=== PATIENT | female | born 1960 | race African-American/Black ===

== ENCOUNTER 2017-11-21 19:55 | Emergency (ER) | payer OTHER ==
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
[2017-11-21 20:54] VITALS: BP 153/97; TEMP 98.2
[2017-11-21 21:28] LABS: EOS % 1.4 % (0-4.5); HEMATOCRIT 39.6 % (32.4-45.2); HEMOGLOBIN 12.9 GM/dL (10.7-15.3); LYMPH % 52.8 % (8-40); MCH 26.5 pg (25.7-33.7); MCHC 32.5 g/dl (32.0-36.0); MEAN CELL VOLUME 81.7 fl (80-96); MEAN PLT VOLUME 9.3 fl (7.5-11.1); NEUT % 37.8 % (42.8-82.8); PLATELET COUNT 200 K/MM3 (134-434); RBC 4.84 M/mm3 (3.60-5.2); RDW 13.9 % (11.6-15.6); WHITE BLOOD COUNT 5.8 K/mm3 (4.0-10.0)
[2017-11-21 21:55] LABS: ALBUMIN 4.3 g/dl (3.4-5.0); ANION GAP 5 (8-16); BILIRUBIN,TOTAL 0.3 mg/dL (0.2-1.0); BLOOD UREA NITROGEN 12 mg/dL (7-18); CALCIUM 8.5 mg/dL (8.5-10.1); CHLORIDE 105 mmol/L (98-107); CO2 30 mmol/L (21-32); CREATININE 0.7 mg/dL (0.55-1.02); GLUCOSE,RANDOM 109 mg/dL (74-106); POTASSIUM 3.6 mmol/L (3.5-5.1); SGOT/AST 18 U/L (15-37); SGPT/ALT 37 U/L (12-78); SODIUM 140 mmol/L (136-145); TOT PROT 7.8 g/dl (6.4-8.2)
[2017-11-21 21:56] LABS: ALK PHOS 121 U/L (45-117)
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
[2017-11-23 06:07] LABS: HBsAG SCREEN Negative (Negative); HEPATITIS B CORE ANTIBODY Negative (Negative)
== END 2017-11-21 22:53 | disposition home or self-care (01) ==
LOC: JERFT 19:55
DX: Z77.21 Contact with and (suspected) exposure to potentially hazardous body fluids (principal); X58.XXXA Exposure to other specified factors, initial encounter; Y93.89 Activity, other specified; Y92.239 Unspecified place in hospital as the place of occurrence of the external cause; Y99.0 Civilian activity done for income or pay; I10 Essential (primary) hypertension
CPT/HCPCS: 36415; 80053; 85025; 86704; 86803; 87340; 87389; 99281-25

== ENCOUNTER 2018-07-05 17:26 | Emergency (ER) | payer OTHER ==
[2018-07-05 17:44] VITALS: TEMP 97.9; BMI 28.3
--- NOTE | 2018-07-05 18:15 | PDOC ---
History of Present Illness - General Chief Complaint: Lightheaded Stated Complaint: DIZZINESS Time Seen by Provider: 07/05/18 17:48 History Source: Patient Exam Limitations: No Limitations - History of Present Illness Initial Comments: 07/05/18 18:10 58 yo female pmh of hypertension and osteoarthritis presents to the ED after having an episode of sudden onset dizziness while opening a door quickly at work at 4 20 pm today. Patient denies currently having these s/s but admits to a mild REYNA. Denies ever having these symptoms in the past, LOC, falling, CP or palpitations, N/V, changes in vision, numbness or weakness on one side of her body or incontinence. Past History - Past Medical History Allergies/Adverse Reactions: Allergies Allergy/AdvReac Type Severity Reaction Status Date / Time No Known Allergies Allergy Verified 07/05/18 17:44 Home Medications: Ambulatory Orders Hydrochlorothiazide [Hctz -] 25 mg PO DAILY 04/24/14 Amlodipine Besylate [Norvasc -] 5 mg PO DAILY 11/21/17 COPD: No HTN: Yes - Suicide/Smoking/Psychosocial Hx Smoking History: Never smoked Have you smoked in the past 12 months: No Information on smoking cessation initiated: No Hx Alcohol Use: No Drug/Substance Use Hx: No Substance Use Type: None Review of Systems - Review of Systems Constitutional: No: Chills, Fever HEENTM: No: Blurred Vision, Double Vision Respiratory: No: Shortness of Breath Cardiac (ROS): No: Chest Pain, Irregular Heart Rate, Lightheadedness, Palpitations ABD/GI: No: Nausea, Vomiting Neurological: Yes: Headache (mild). No: Numbness, Paresthesia, Weakness, Ataxia , Dizziness *Physical Exam - Vital Signs Last Vital Signs Temp Pulse Resp BP Pulse Ox 97.9 F 76 17 156/86 100 07/05/18 17:41 07/05/18 17:41 07/05/18 17:41 07/05/18 17:41 07/05/18 17:41 - Physical Exam General Appearance: Yes: Nourished, Appropriately Dressed. No: Apparent Distress HEENT: positive: EOMI, [place]A Respiratory/Chest: positive: Lungs Clear, Normal Breath Sounds. negative: Crackles, Wheezing Cardiovascular: positive: Regular Rhythm, Regular Rate, S1, S2. negative: Edema , JVD, Murmur Vascular Pulses: Dorsalis-Pedis (R): 4+, Doralis-Pedis (L): 4+ Gastrointestinal/Abdominal: positive: Normal Bowel Sounds. 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 negative: Facial Droop, Numbness, Sensory Deficit, Finger to Nose (normal) Heart Score/ECG Review - ECG Intrepretation Rhythm: Regular Rhythm - [place]: Normal - ECG Impressions Normal ECG: Yes Medical Decision Making - Medical Decision Making 07/05/18 18:53 58 yo female pmh of hypertension presents to ED with mild headache and dizziness. Headache present but dizziness resolved. Neuro exam negative. Normal EKG, no arrhythmia CBC, CMP ordered for anemia, electrolytes Reglan and fluids ordered. DC home if labs normal *DC/Admit/Observation/Transfer - Referrals Referrals: Mike Jimenez MD [Primary Care Provider] - - Patient Instructions - Post Discharge Activity
--- NOTE | 2018-07-05 18:34 | PDOC ---
Attending Attestation - Resident Resident Name: Preston De Santiago - ED Attending Attestation I have performed the following: I have examined & evaluated the patient, The case was reviewed & discussed with the resident, I agree w/resident's findings & plan, Exceptions are as noted - HPI HPI: 07/05/18 18:30 58y F hx of htn, hl, presents with feeling lightheaded for about 1 hr, states she turned her head really fast and felt lightheaded and like her head was spinning raound was most severe immediately but then gradually improved. It has since ressolved - no associated cp, palpitatoins, n/v, viso nchanges, numbness/ tingling/weakness, neck pain, back pain, dairrhea, melena, bpr. pt currently presenting mild posterior headache. exam unremarkble heart: rrr, no mrg pulm: cta b/l abd soft nontender neuro: moving all 4 extremities spnotaneously and symmetrically Possible vagal episode versus peripheral vertigo Will check basic blood work to rule out anemia, metabolic derangements, EKG to screen for arrhythmia If workup negative anticipate discharge with PMD follow-up 07/05/18 20:38 Patient's blood work resulted and they are unremarkable patient is currently asymptomatic Will discharge strict return precautions - Physicial Exam PE: 07/07/18 19:51 se eaobve - Medical Decision Making 07/07/18 19:51 see above Heart Score/ECG Review - ECG Impressions Comment:: 07/05/18 18:34 Twelve-lead EKG was performed and reviewed by me. There is normal sinus rhythm with a normal rate. Rate of [address] changes suggestive of acute ischemia
[2018-07-05] MEDS ORDERED: METOCLOPRAMIDE HCL INJECTION 10 MG/2 ML VIAL IVPUSH ONE (18:41)
[2018-07-05] MEDS ORDERED: SODIUM CHLORIDE 1,000 ML IV STA (18:41)
[2018-07-05] MEDS ORDERED: METOCLOPRAMIDE HCL INJECTION 10 MG/2 ML VIAL ONE (18:52)
--- NOTE | 2018-07-05 19:21 | PDOC ---
*Physical Exam - Vital Signs Last Vital Signs Temp Pulse Resp BP Pulse Ox 97.9 F 76 17 156/86 100 07/05/18 17:41 07/05/18 17:41 07/05/18 17:41 07/05/18 17:41 07/05/18 17:41 - Physical Exam Comments: 07/05/18 19:28 GENERAL: Awake, alert, and fully oriented, in no acute distress HEAD: No signs of trauma, normocephalic, atraumatic EYES: EOMI, sclera anicteric, conjunctiva clear ENT:oropharynx clear without exudates. Moist mucosa NECK: Normal ROM, supple LUNGS: No distress, speaks full sentences, clear to auscultation bilaterally HEART: Regular rate and rhythm, normal S1 and S2, no murmurs, rubs or gallops, peripheral pulses normal and equal bilaterally. ABDOMEN: Soft, nontender, normoactive bowel sounds. No guarding, no rebound. No masses EXTREMITIES : Normal inspection, Normal range of motion, no edema. No clubbing or cyanosis. NEUROLOGICAL: Normal speech, normal gait, no focal sensorimotor deficits SKIN: Warm, Dry, normal turgor, no rashes or lesions noted ED Treatment Course - LABORATORY CBC & Chemistry Diagram: 07/05/18 18:47 07/05/18 19:31 - Medications Given in the ED: ED Medications Discontinued Medications Generic Name Dose Route Start Last Admin Trade Name Freq PRN Reason Stop Dose Admin Metoclopramide HCl 10 mg 07/05/18 18:41 07/05/18 19:02 Reglan Injection - IVPUSH 07/05/18 18:42 10 mg ONCE ONE Administration Medical Decision Making - Medical Decision Making 58 yo female pmh of hypertension and osteoarthritis presents to the ED after having an episode of sudden onset dizziness while opening a door quickly at work at 4 20 pm today. Patient denies currently having these s/s but admits to a mild REYNA. Denies ever having these symptoms in the past, LOC, falling, CP or palpitations, N/V, changes in vision, numbness or weakness on one side of her body or incontinence. DDX including but not limited to: dehydration vs anemia vs arrythmia W/U: - cbc, cmp - ekg TX: - 1L NS ED Course: 07/05/18 19:21 Pt signed out by Dr. De Santiago 07/05/18 19:30 Pt assessed. stable. feels improved 07/05/18 19:55 Labwork: unremarkable 07/05/18 20:41 Patient stable for discharge. Given follow up instructions and strict return precautions. Patient expressed understanding and agreed to plan. *DC/Admit/Observation/Transfer Diagnosis at time of Disposition: Dizziness - Discharge Dispostion Disposition: HOME Condition at time of disposition: Stable Decision to Admit order: No - Referrals Referrals: Mike Jimenez MD [Primary Care Provider] - - Patient Instructions Printed Discharge Instructions: DI for Dehydration -- Adult, DI for Dizziness- Nonvertigo Additional Instructions: You were seen in the ED for complaints of dizziness In the ED you were evaluated with labwork. Your results were unremarkable and you showed improvement of symptoms with fluids. There does not appear to be an acute need for immediate hospitalization. You are advised to follow up with your primary care physician within 1 week. Return to the ED immediately if you experience recurrent dizziness, headaches, loss of consciousness, nausea, vomiting, fever or changes in vision or hearing. - Post Discharge Activity
[2018-07-05 19:40] LABS: BASO % 1.6 % (0-2.0); EOS % 1.5 % (0-4.5); HEMATOCRIT 39.4 % (32.4-45.2); HEMOGLOBIN 12.7 GM/dL (10.7-15.3); LYMPH % 51.9 % (8-40); MCH 26.4 pg (25.7-33.7); MCHC 32.2 g/dl (32.0-36.0); MEAN CELL VOLUME 81.9 fl (80-96); MEAN PLT VOLUME 9.5 fl (7.5-11.1); MONO % 8.7 % (3.8-10.2); NEUT % 36.3 % (42.8-82.8); PLATELET COUNT 198 K/MM3 (134-434); RDW 13.9 % (11.6-15.6); WHITE BLOOD COUNT 5.4 K/mm3 (4.0-10.0)
[2018-07-05 20:02] LABS: ALBUMIN 4.1 g/dl (3.4-5.0); ALK PHOS 112 U/L (45-117); ANION GAP 7 MMOL/L (8-16); BILIRUBIN,TOTAL 0.2 mg/dL (0.2-1.0); BLOOD UREA NITROGEN 13 mg/dL (7-18); CALCIUM 8.9 mg/dL (8.5-10.1); CHLORIDE 107 mmol/L (98-107); CO2 30 mmol/L (21-32); CREATININE 0.6 mg/dL (0.55-1.3); GLUCOSE,RANDOM 90 mg/dL (74-106); POTASSIUM 4.2 mmol/L (3.5-5.1); SGOT/AST 19 U/L (15-37); SGPT/ALT 34 U/L (13-61); SODIUM 144 mmol/L (136-145); TOT PROT 7.6 g/dl (6.4-8.2)
[2018-07-05 20:58] VITALS: BP 108/73; PULSE 776
--- NOTE | 2018-07-07 21:54 | EKG ---
Test Reason : Blood Pressure : / mmHG Vent. Rate : 068 BPM Atrial Rate : 068 BPM P-R Int : 160 ms QRS Dur : 082 ms QT Int : 378 ms P-R-T Axes : 065 -01 019 degrees QTc Int : 401 ms NORMAL SINUS RHYTHM POSSIBLE LEFT ATRIAL ENLARGEMENT LEFT VENTRICULAR HYPERTROPHY NONSPECIFIC T WAVE ABNORMALITY ABNORMAL ECG NO PREVIOUS ECGS AVAILABLE Confirmed by TIRSO GODOY MD ([id number]) on 07/07/2018 9:54:00 PM Referred By: Confirmed By:TIRSO GODOY MD
== END 2018-07-05 20:58 | disposition home or self-care (01) ==
LOC: JER 17:26
PROC: 3E033GC Introduction of Other Therapeutic Substance into Peripheral Vein, Percutaneous Approach (ICD-10-PCS; principal; 2018-07-05)
PROC: 3E0337Z Introduction of Electrolytic and Water Balance Substance into Peripheral Vein, Percutaneous Approach (ICD-10-PCS; 2018-07-05)
DX: R42 Dizziness and giddiness (principal)
CPT/HCPCS: 36415; 80053; 85025; 93005; 93010; 99283-25; J7030